=== PATIENT | male | born 1950 | race Caucasian/White ===

== ENCOUNTER 2020-03-01 10:45 | Emergency (ER) | payer MEDICARE, OTHER ==
[~2020-03-01 10:45] MED LIST: BENADRYL 25MG C25 MG PO; MUCINEX600 MG PO
[2020-03-01 11:39] LABS: HEMOGLOBIN 11.1 gm/dl (14.0-17.5); RED BLOOD COUNT 3.91 M/UL (4.20-5.50); WHITE BLOOD COUNT 6.7 K/UL (4.5-11.0)
[2020-03-01 12:13] LABS: BUN/CREATININE RATIO 19 (0-10)
[2020-03-01] MEDS ORDERED: CEFUROXIME500 MG PO (14:20)
== END 2020-03-01 15:05 | disposition home or self-care (01) ==
LOC: ER1 10:45
PROVIDERS: Preventive Medicine Occupational Medicine
DX: C61 Malignant neoplasm of prostate (principal); I10 Essential (primary) hypertension; Z20.822 Contact with and (suspected) exposure to COVID-19
CPT/HCPCS: 70450; 71045; 80053; 81001; 82550; 82553; 83874; 84484; 85025; 85652; 86140; 87086; 93005; 96374; 96375; 99284; J0696; J2405; J7030; U0002

== ENCOUNTER 2020-05-12 08:55 | Emergency (ER) | payer MEDICARE, OTHER ==
[~2020-05-12 08:55] MED LIST changes: +CEFUROXIME500 MG PO
[2020-05-12 10:21] LABS: HEMOGLOBIN 10.3 gm/dl (14.0-17.5); RED BLOOD COUNT 3.82 M/UL (4.20-5.50); WHITE BLOOD COUNT 11.6 K/UL (4.5-11.0)
[2020-05-12 10:59] LABS: BUN/CREATININE RATIO 20 (0-10)
== END 2020-05-12 13:45 | disposition home or self-care (01) ==
LOC: ER1 08:55
PROVIDERS: Emergency Medicine
DX: E87.6 Hypokalemia (principal); R10.9 Unspecified abdominal pain; R00.0 Tachycardia, unspecified; R06.00 Dyspnea, unspecified; Z20.822 Contact with and (suspected) exposure to COVID-19; J45.909 Unspecified asthma, uncomplicated; I42.9 Cardiomyopathy, unspecified; E78.5 Hyperlipidemia, unspecified; K21.9 Gastro-esophageal reflux disease without esophagitis; Z85.46 Personal history of malignant neoplasm of prostate
CPT/HCPCS: 71045; 80053; 81001; 82550; 82553; 83605; 83690; 83874; 83880; 84484; 85025; 85379; 87040; 93005; 96374; 96375; 96376; 99285; J2270; J2405; J7040; Q9967; U0002